=== PATIENT | male | born 1965 | race Caucasian/White ===

== ENCOUNTER 2020-03-20 11:15 | Day surgery (SDC) | payer MEDICAID ==
[2020-03-20] VITALS (11 sets, daily range): BP systolic 102–141; BP diastolic 59–89
[~2020-03-20] VITALS: Ht 172.7 cm; Wt 100.2 kg
[2020-03-20] MEDS ORDERED: normal saline 1,000 ML IV SCH (11:40)
[2020-03-20] MEDS ORDERED: LORazepam 0.5 MG tablet PO PRN (11:40)
[2020-03-20] MEDS ORDERED: nitroGLYCERIN 0.4mg SUBLingual tab SL PRN (11:40)
[2020-03-20] MEDS ORDERED: diphenhydrAMINE 25mg capsule PO PRN (11:40)
[2020-03-20] MEDS ORDERED: LISI-600 PO (11:56)
[2020-03-20] MEDS ORDERED: VERA80TA7 PO (11:56)
[2020-03-20] MEDS ORDERED: OMEP-50 PO (11:56)
[2020-03-20] MEDS ORDERED: SIMV10TA98 PO (11:56)
[2020-03-20] MEDS ORDERED: HYDR12.55 PO (11:56)
[2020-03-20] MEDS ORDERED: FEXO-25 PO (11:59)
[2020-03-20] MEDS ORDERED: MV-M1TAB22 (11:59)
[2020-03-20] MEDS ORDERED: MULT-964 PO (11:59)
[2020-03-20] MEDS ORDERED: ASPI-611 PO (11:59)
[2020-03-20] MEDS ORDERED: OMEG-15 PO (11:59)
[2020-03-20 12:51] LABS: BASOPHILS # (AUTO) 0.1 X10'3 (0-0.2); BASOPHILS % (AUTO) 0.6 % (0-1); EOSINOPHILS # (AUTO) 0.1 X10'3 (0-0.9); EOSINOPHILS % (AUTO) 1.2 % (0-6); HEMATOCRIT 42.8 % (42.0-52.0); HEMOGLOBIN 14.5 g/dl (14.0-17.9); LYMPHOCYTES # (AUTO) 2.3 X10'3 (1.1-4.8); MEAN CORPUSCULAR HEMOGLOBIN 30.9 PG (27.0-31.0); MEAN CORPUSCULAR HGB CONC 33.9 g/dL (33.0-36.5); MEAN CORPUSCULAR VOLUME 91.1 FL (78-98); MEAN PLATELET VOLUME 8.5 FL (7.4-10.4); MONOCYTES # (AUTO) 0.4 X10'3 (0-0.9); MONOCYTES % (AUTO) 4.4 % (2-12); NEUTROPHILS % (AUTO) 70.8 % (42-75); PLATELET COUNT 250 X10'3 (140-440); RED CELL DISTRIBUTION WIDTH 12.8 % (11.5-14.5); WHITE BLOOD COUNT 9.9 X10'3 (4.5-11.0)
[2020-03-20 12:55] LABS: ALBUMIN 3.9 G/DL (3.4-5.0); ANION GAP 6 (8-16); BLOOD UREA NITROGEN 15 MG/DL (7-18); CHLORIDE 108 MMOL/L (99-107); GLUCOSE 93 MG/DL (70-104); POTASSIUM 3.6 MMOL/L (3.5-5.1); SODIUM 144 MMOL/L (135-145); eGFR 78 ML/MIN
[2020-03-20 12:58] LABS: PARTIAL THROMBOPLASTIN TIME 28 SECONDS (22-32)
[2020-03-20] MEDS ORDERED: LIDOcaine 1% (10mg/ml)w/preservative injection 20ml MDV ONE (13:36)
[2020-03-20] MEDS ORDERED: fentaNYL/PF 50MCG/1 ML 2ML syringe ONE ×2 (13:36→14:20)
[2020-03-20] MEDS ORDERED: iohexol 350 MG/ML 50ML vial IV ONE (13:36)
[2020-03-20] MEDS ORDERED: midazolam 2 mg/2 ml injection ONE ×3 (13:36→14:23)
[2020-03-20] MEDS ORDERED: iohexol 350MG/ML 100ml bottle IV ONE (13:37)
[2020-03-20] MEDS ORDERED: ondansetron/PF 4mg/2ml inj IV PRN (15:15)
[2020-03-20] MEDS ORDERED: HYDROcodone/acetaminophen 5mg/325mg tablet PO PRN (15:15)
[2020-03-20] MEDS ORDERED: HYDROcodone/acetaminophen 10/325mg tab PO PRN (15:15)
[2020-03-20] MEDS ORDERED: OXAZEpam 15mg capsule PO PRN (15:15)
== END 2020-03-20 20:05 | disposition home or self-care (01) ==
LOC: SSTAY O 11:15
PROVIDERS: ATTEND Internal Medicine Cardiovascular Disease
DX: R94.39 Abnormal result of other cardiovascular function study (principal); I25.10 Atherosclerotic heart disease of native coronary artery without angina pectoris; I10 Essential (primary) hypertension; E78.5 Hyperlipidemia, unspecified; K21.9 Gastro-esophageal reflux disease without esophagitis; Z79.82 Long term (current) use of aspirin; Z79.899 Other long term (current) drug therapy; Z79.01 Long term (current) use of anticoagulants
CPT/HCPCS: 36415; 71046; 80048; 85025; 85610; 85730; 93005; 93458; 99152; 99153; C1769; J1644; J2001; J2250; J3010; J7030; Q9967; A6258; C1760

== ENCOUNTER 2020-03-20 20:38 | Emergency (ER) | payer MEDICAID ==
[~2020-03-20] VITALS: Ht 172.7 cm; Wt 100.0 kg
[~2020-03-20 20:38] MED LIST: ASPI-611 PO; FEXO-25 PO; HYDR12.55 PO; LISI-600 PO; MULT-964 PO; MV-M1TAB22; OMEG-15 PO; OMEP-50 PO; SIMV10TA98 PO; VERA80TA7 PO
[2020-03-20 20:54] LABS: BASOPHILS # (AUTO) 0.1 X10'3 (0-0.2); BASOPHILS % (AUTO) 0.8 % (0-1); EOSINOPHILS # (AUTO) 0.4 X10'3 (0-0.9); EOSINOPHILS % (AUTO) 2.6 % (0-6); HEMATOCRIT 45.1 % (42.0-52.0); LYMPHOCYTES # (AUTO) 5.3 X10'3 (1.1-4.8); LYMPHOCYTES % (AUTO) 38.1 % (21-51); MEAN CORPUSCULAR HEMOGLOBIN 30.5 PG (27.0-31.0); MEAN CORPUSCULAR HGB CONC 33.2 g/dL (33.0-36.5); MEAN CORPUSCULAR VOLUME 91.8 FL (78-98); MEAN PLATELET VOLUME 8.6 FL (7.4-10.4); MONOCYTES % (AUTO) 7.2 % (2-12); NEUTROPHILS # (AUTO) 7.2 X10'3 (1.8-7.7); NEUTROPHILS % (AUTO) 51.3 % (42-75); PLATELET COUNT 300 X10'3 (140-440); RED BLOOD COUNT 4.91 X10'6 (4.70-6.10); RED CELL DISTRIBUTION WIDTH 12.6 % (11.5-14.5)
[2020-03-20] MEDS ORDERED: ondansetron/PF 4mg/2ml inj IV ONE (20:55)
[2020-03-20] MEDS ORDERED: normal saline 1000ML IV soln IV ONE (20:55)
[2020-03-20 21:09] LABS: ALANINE AMINOTRANSFERASE 36 U/L (12-78); ALBUMIN 3.9 G/DL (3.4-5.0); ALBUMIN/GLOBULIN RATIO 1.3 (1.1-1.5); ALKALINE PHOSPHATASE 61 IU/L (46-116); ANION GAP 8 (8-16); ASPARTATE AMINO TRANSFERASE 17 U/L (10-37); BILIRUBIN,TOTAL 0.7 MG/DL (0.1-1.0); BLOOD UREA NITROGEN 16 MG/DL (7-18); BUN/CREATININE RATIO 15.8 (5.4-32.0); CHLORIDE 108 MMOL/L (99-107); CREATININE 1.01 MG/DL (0.60-1.10); GLUCOSE 122 MG/DL (70-104); SODIUM 146 MMOL/L (135-145); TOTAL CARBON DIOXIDE 29.9 MMOL/L (24-32); TOTAL PROTEIN 6.9 G/DL (6.4-8.2); eGFR 77 ML/MIN
[2020-03-20] MEDS ORDERED: potassium Cl 20 mEq SR tablet PO STA (21:18)
[2020-03-20] MEDS ORDERED: potassium Cl 10 mEq/100mL bag IV ONE (21:20)
[2020-03-20 21:50] VITALS: BP 125/73
== END 2020-03-20 21:52 | disposition home or self-care (01) ==
LOC: ER 20:39
DX: R55 Syncope and collapse (principal); E86.0 Dehydration; E87.6 Hypokalemia; I25.10 Atherosclerotic heart disease of native coronary artery without angina pectoris; I10 Essential (primary) hypertension; Z72.89 Other problems related to lifestyle; Z88.8 Allergy status to other drugs, medicaments and biological substances; Z79.82 Long term (current) use of aspirin; Z79.899 Other long term (current) drug therapy
CPT/HCPCS: 36415; 71045; 80053; 82948; 84484; 85025; 93005; 96361; 96374; 99285; J2405; J7030